=== PATIENT | male | born 1985 | race Caucasian/White ===

== ENCOUNTER 2016-10-04 18:11 | Emergency (ER) | payer OTHER ==
--- NOTE | 2016-10-04 20:06 | EDDOCDS ---
Nurse's Notes [facility] Name: Live [place] Age: 31 yrs Sex: Male : 1985 Arrival Date: 10/04/2016 Time: 18:11 Bed I10 / 23 Private MD: No Gill [facility] Diagnosis: Otitis externa;Otitis media, unspecified, right ear Presentation: 10/04 18:41 Presenting complaint: Patient states: right ear pain and decreased hearing since this ttb morning. No drainage noted. "crackling" in ear. Adult Sepsis Screening: The patient does not have new or worsening altered mentation. Patient's respiratory rate is less than 22. Systolic blood pressure is greater than 100. Patient has a qSOFA score of 0- Negative Sepsis Screen. Suicide/Homicide risk assessment- the patient denies having any suicidal and/or homicidal ideations and does not present with any other emotional, behavioral or mental health complaints. 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 Transition of care: patient was not received from another setting of care. 18:41 Acuity: MENA Level 5 ttb 18:41 Method Of Arrival: Walkin/Carried/Asstd ttb Triage Assessment: 18:43 General: Appears in no apparent distress, well nourished, well groomed, Behavior is ttb appropriate for age, cooperative, pleasant. Pain: Location: right ear Pain currently is 7 out of 10 on a pain scale. Pt Declines HIV testing. Neurological: Level of Consciousness is awake, alert. EENT: Reports nasal congestion nasal discharge pain in right ear. Cardiovascular: Chest pain is denied. Respiratory: No deficits noted. Airway is patent Respiratory effort is even, unlabored, Denies cough, shortness of breath. Derm: Skin is normal. 18:43 Injury Description: No known injury. ttb Historical: - Allergies: no known allergies; - Home Meds: 1. Tylenol Oral Unknown every 4 hours (Last dose: 10/04/2016 16:00) - PMHx: none; - PSHx: nerve grafting; tendon transfers; I&D; ulnar nerve transposition; Vasectomy; - Social history: Smoking status: Patient uses tobacco products, heavy tobacco smoker. Patient/guardian denies using alcohol, street drugs, No barriers to communication noted, The patient speaks fluent Northern Irish, Speaks appropriately for age. - Family history: Not pertinent. - : The pt / caregiver states he / she is not on anticoagulants. Home medication list is obtained from the patient. - Exposure Risk Screening:: None identified. Screenin:04 Screening information is obtained from the patient. Fall risk: No risks identified. ka4 Assistance ADL's: requires no assistance with activities of daily living. Abuse/DV Screen: The patient / caregiver reports he/she is: not in a situation that causes fear, pain or injury. Nutritional screening: No deficits noted. Advance Directives: There is no active DNR order. home support is adequate. Assessment: 20:03 General: Appears in no apparent distress, comfortable, well nourished, well groomed, ka4 Behavior is appropriate for age, cooperative, pleasant. Neurological: Level of Consciousness is awake, alert, obeys commands, Oriented to person, place, time, Systems Integration Engineer are equal bilaterally Moves all extremities. Gait is steady, Speech is normal, Facial symmetry appears normal, Facial symmetry: tongue is midline, Pupils are PERRLA. Respiratory: Airway is patent Respiratory effort is even, unlabored, Respiratory pattern is regular, symmetrical. Derm: Skin is intact, is healthy with good turgor, Skin is pink, warm & dry. Vital Signs: 18:12 BP 162 / 98; Pulse 100; Resp 18; Temp 98.8(O); Pulse Ox 97% on R/A; Weight 93.89 kg; dem1 Height 70 in. (177.80 cm); Pain 7/10; 18:12 Body Mass Index 29.70 (93.89 kg, 177.80 cm) [facility] Vitals: 18:12 Log In Time: October 04, 2016 at 18:10. [facility] ED Course: 18:12 Patient visited by Anamaria Mcfarlane. [facility] 18:12 [facility] 18:12 [place] is Private Physician. dem1 18:12 Patient moved to Waiting dem1 18:13 Patient moved to Pre RCE dem1 18:42 Triage Initiated ttb 19:35 [facility] ke 19:39 Patient moved to I10 / 23 [facility] 19:40 Patient visited by Chetan Ryan FNP. ke 19:40 Patient visited by Chetan Ryan FNP. ke 19:48 [facility] ke 20:04 The patient / caregiver is instructed regarding the plan of care and ED course. ka4 20:04 No IV's were initiated during this patient's visit. No procedures done that require ka4 assistance. 20:05 Patient name changed from Live\\S\\\\S\\[place]\\S\\ to Live\\S\\Davis\\S\\[place]. EDMS Order Results: There are currently no results for this order. Outcome: 19:49 Discharge ordered by Provider. ke 20:04 Discharge Assessment: patient administered narcotics - no. The following High Risk ka4 Discharge criteria are identified: None. Discharged to home ambulatory. Condition: good Condition: stable. No special radiology studies were completed. Property :Personal belongings accompany Pt. 20:05 Patient left the ED. ka4 Signatures: Dispatcher [employer] EDFL Chetan Ryan FNP FNP ke Strong, Shannon RN RN oswald1 Anamaria Mcfarlane Teresa, RN RN Tete Arellano LPN LPN ka4 MINGO
--- NOTE | 2016-10-04 20:06 | EDDOCDS ---
Physician Documentation [facility] Name: Live [place] Age: 31 yrs Sex: Male : 1985 Arrival Date: 10/04/2016 Time: 18:11 Bed I10 / 23 Private MD: No Gill [facility] Disposition: 10/04/16 19:49 Discharged to Home/Self Care. Impression: Otitis externa, Otitis media, unspecified, right ear. - Condition is Stable. - Discharge Instructions: Otitis Externa. - Prescriptions for Amoxicillin 500 mg Oral Capsule - take 1 capsule by ORAL route every 8 hours for 10 days; 30 tablet. Cipro HC 0.2- 1 % Otic Drops, Suspension - instill 3 drop by OTIC route every 12 hours for 7 days; 10 milliliter. Ibuprofen 600 mg Oral Tablet - take 1 tablet by ORAL route every 6 hours As needed take with food; 30 tablet. - Medication Reconciliation, Local Pharmacy Hours form. - Follow up: No Gill [facility]; When: 2 - 3 days; Reason: Recheck today's complaints, Continuance of care. - Problem is an ongoing problem. - Symptoms are unchanged. Historical: - Allergies: no known allergies; - Home Meds: 1. Tylenol Oral Unknown every 4 hours (Last dose: 10/04/2016 16:00) - PMHx: none; - PSHx: nerve grafting; tendon transfers; I&D; ulnar nerve transposition; Vasectomy; - Social history: Smoking status: Patient uses tobacco products, heavy tobacco smoker. Patient/guardian denies using alcohol, street drugs, No barriers to communication noted, The patient speaks fluent Italian, Speaks appropriately for age. - Family history: Not pertinent. - : The pt / caregiver states he / she is not on anticoagulants. Home medication list is obtained from the patient. - Exposure Risk Screening:: None identified. Vital Signs: 10/04 18:12 BP 162 / 98; Pulse 100; Resp 18; Temp 98.8(O); Pulse Ox 97% on R/A; Weight 93.89 kg / dem1 206.99 lbs; Height 70 in. (177.80 cm); Pain 7/10; 18:12 Body Mass Index 29.70 (93.89 kg, 177.80 cm) dem1 Signatures: Chetna Ryan, DIGITAL MARKETING INTERN DIGITAL MARKETING INTERN Lima Cheung, RN RN ttb Tang,Tete,BRICK SETTER BRICK SETTER ka4 MTDD
--- NOTE | 2016-10-06 21:05 | EDDOCDS ---
Nurse's Notes [facility] Name: Live [place] Age: 31 yrs Sex: Male : 1985 Arrival Date: 10/04/2016 Time: 18:11 Bed I10 / 23 Private MD: No Gill [facility] Diagnosis: Otitis externa;Otitis media, unspecified, right ear Presentation: 10/04 18:41 Presenting complaint: Patient states: right ear pain and decreased hearing since this ttb morning. No drainage noted. "crackling" in ear. Adult Sepsis Screening: The patient does not have new or worsening altered mentation. Patient's respiratory rate is less than 22. Systolic blood pressure is greater than 100. Patient has a qSOFA score of 0- Negative Sepsis Screen. Suicide/Homicide risk assessment- the patient denies having any suicidal and/or homicidal ideations and does not present with any other emotional, behavioral or mental health complaints. 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 Transition of care: patient was not received from another setting of care. 18:41 Acuity: MENA Level 5 ttb 18:41 Method Of Arrival: Walkin/Carried/Asstd ttb Triage Assessment: 18:43 General: Appears in no apparent distress, well nourished, well groomed, Behavior is ttb appropriate for age, cooperative, pleasant. Pain: Location: right ear Pain currently is 7 out of 10 on a pain scale. Pt Declines HIV testing. Neurological: Level of Consciousness is awake, alert. EENT: Reports nasal congestion nasal discharge pain in right ear. Cardiovascular: Chest pain is denied. Respiratory: No deficits noted. Airway is patent Respiratory effort is even, unlabored, Denies cough, shortness of breath. Derm: Skin is normal. 18:43 Injury Description: No known injury. ttb Historical: - Allergies: no known allergies; - Home Meds: 1. Tylenol Oral Unknown every 4 hours (Last dose: 10/04/2016 16:00) - PMHx: none; - PSHx: nerve grafting; tendon transfers; I&D; ulnar nerve transposition; Vasectomy; - Social history: Smoking status: Patient uses tobacco products, heavy tobacco smoker. Patient/guardian denies using alcohol, street drugs, No barriers to communication noted, The patient speaks fluent Finnish, Speaks appropriately for age. - Family history: Not pertinent. - : The pt / caregiver states he / she is not on anticoagulants. Home medication list is obtained from the patient. - Exposure Risk Screening:: None identified. Screenin:04 Screening information is obtained from the patient. Fall risk: No risks identified. ka4 Assistance ADL's: requires no assistance with activities of daily living. Abuse/DV Screen: The patient / caregiver reports he/she is: not in a situation that causes fear, pain or injury. Nutritional screening: No deficits noted. Advance Directives: There is no active DNR order. home support is adequate. Assessment: 20:03 General: Appears in no apparent distress, comfortable, well nourished, well groomed, ka4 Behavior is appropriate for age, cooperative, pleasant. Neurological: Level of Consciousness is awake, alert, obeys commands, Oriented to person, place, time, Business Rules Analyst are equal bilaterally Moves all extremities. Gait is steady, Speech is normal, Facial symmetry appears normal, Facial symmetry: tongue is midline, Pupils are PERRLA. Respiratory: Airway is patent Respiratory effort is even, unlabored, Respiratory pattern is regular, symmetrical. Derm: Skin is intact, is healthy with good turgor, Skin is pink, warm & dry. Vital Signs: 18:12 BP 162 / 98; Pulse 100; Resp 18; Temp 98.8(O); Pulse Ox 97% on R/A; Weight 93.89 kg; dem1 Height 70 in. (177.80 cm); Pain 7/10; 18:12 Body Mass Index 29.70 (93.89 kg, 177.80 cm) [facility] Vitals: 18:12 Log In Time: October 04, 2016 at 18:10. [facility] ED Course: 18:12 Patient visited by Anamaria Mcfarlane. [facility] 18:12 [facility] 18:12 [place] is Private Physician. dem1 18:12 Patient moved to Waiting dem1 18:13 Patient moved to Pre RCE dem1 18:42 Triage Initiated ttb 19:35 [facility] ke 19:39 Patient moved to I10 / 23 [facility] 19:40 Patient visited by Chetan Ryan FNP. ke 19:40 Patient visited by Chetan Ryan FNP. ke 19:48 [place], [facility] is Referral Physician. ke 20:04 The patient / caregiver is instructed regarding the plan of care and ED course. ka4 20:04 No IV's were initiated during this patient's visit. No procedures done that require ka4 assistance. 20:05 Patient name changed from Live\\S\\\\S\\[place]\\S\\ to Live\\S\\[place]\\S\\[place]. EDMS 20:10 [facility] Payment Agreement was scanned into [employer] and attached to record. erica 10/05 07:33 T-Sheet-- Draft Copy was scanned into [employer] and attached to record. gb Order Results: There are currently no results for this order. Outcome: 10/04 19:49 Discharge ordered by Provider. ke 20:04 Discharge Assessment: patient administered narcotics - no. The following High Risk ka4 Discharge criteria are identified: None. Discharged to home ambulatory. Condition: good Condition: stable. No special radiology studies were completed. Property :Personal belongings accompany Pt. 20:05 Patient left the ED. ka4 Signatures: Dispatcher [employer] EDID Sarah Centeno, Reg Reg Chetan Byers FNP FNP ke Strong, Shannon, RN RN Anamaria Mccabe Teresa, RN RN Tete Arellano LPN LPN ka4 Dori Shepherd [facility] Chart Complete MTDD
--- NOTE | 2016-10-06 21:05 | EDDOCDS ---
Physician Documentation [facility] Name: Live [place] Age: 31 yrs Sex: Male : 1985 Arrival Date: 10/04/2016 Time: 18:11 Bed I10 / 23 Private MD: No Gill [facility] Disposition: 10/04/16 19:49 Discharged to Home/Self Care. Impression: Otitis externa, Otitis media, unspecified, right ear. - Condition is Stable. - Discharge Instructions: Otitis Externa. - Prescriptions for Amoxicillin 500 mg Oral Capsule - take 1 capsule by ORAL route every 8 hours for 10 days; 30 tablet. Cipro HC 0.2- 1 % Otic Drops, Suspension - instill 3 drop by OTIC route every 12 hours for 7 days; 10 milliliter. Ibuprofen 600 mg Oral Tablet - take 1 tablet by ORAL route every 6 hours As needed take with food; 30 tablet. - Medication Reconciliation, Local Pharmacy Hours form. - Follow up: No Gill [facility]; When: 2 - 3 days; Reason: Recheck today's complaints, Continuance of care. - Problem is an ongoing problem. - Symptoms are unchanged. Historical: - Allergies: no known allergies; - Home Meds: 1. Tylenol Oral Unknown every 4 hours (Last dose: 10/04/2016 16:00) - PMHx: none; - PSHx: nerve grafting; tendon transfers; I&D; ulnar nerve transposition; Vasectomy; - Social history: Smoking status: Patient uses tobacco products, heavy tobacco smoker. Patient/guardian denies using alcohol, street drugs, No barriers to communication noted, The patient speaks fluent Czech, Speaks appropriately for age. - Family history: Not pertinent. - : The pt / caregiver states he / she is not on anticoagulants. Home medication list is obtained from the patient. - Exposure Risk Screening:: None identified. Vital Signs: 10/04 18:12 BP 162 / 98; Pulse 100; Resp 18; Temp 98.8(O); Pulse Ox 97% on R/A; Weight 93.89 kg / dem1 206.99 lbs; Height 70 in. (177.80 cm); Pain 7/10; 18:12 Body Mass Index 29.70 (93.89 kg, 177.80 cm) dem1 MDM: 20:10 [facility] Payment Agreement was scanned into [employer]ide[employer] and attached to record. [facility] 20:10 Financial registration complete. gjb 10/05 07:33 T-Sheet-- Draft Copy was scanned into [employer] and attached to record. gb Signatures: Sarah Centeno, Reg Reg gb Chetan Ryan, CASH REGISTER SERVICER CASH REGISTER SERVICER Lima Cheung, RN RN ttb Tete Beckwith,JET DYEING MACHINE TENDER JET DYEING MACHINE TENDER Dori Alegria The chart was reviewed and I authenticate all verbal orders and agree with the evaluation and treatment provided.Attachments: 10/04 20:10 [facility] Payment Agreement b 10/05 07:33 T-Sheet-- Draft Copy gb Chart Complete MTDD
--- NOTE | 2016-10-06 21:05 | EDDOCDS ---
Physician Documentation [facility] Name: Live [place] Age: 31 yrs Sex: Male : 1985 Arrival Date: 10/04/2016 Time: 18:11 Bed I10 / 23 Private MD: No Gill [facility] Disposition: 10/04/16 19:49 Discharged to Home/Self Care. Impression: Otitis externa, Otitis media, unspecified, right ear. - Condition is Stable. - Discharge Instructions: Otitis Externa. - Prescriptions for Amoxicillin 500 mg Oral Capsule - take 1 capsule by ORAL route every 8 hours for 10 days; 30 tablet. Cipro HC 0.2- 1 % Otic Drops, Suspension - instill 3 drop by OTIC route every 12 hours for 7 days; 10 milliliter. Ibuprofen 600 mg Oral Tablet - take 1 tablet by ORAL route every 6 hours As needed take with food; 30 tablet. - Medication Reconciliation, Local Pharmacy Hours form. - Follow up: No Gill [facility]; When: 2 - 3 days; Reason: Recheck today's complaints, Continuance of care. - Problem is an ongoing problem. - Symptoms are unchanged. Historical: - Allergies: no known allergies; - Home Meds: 1. Tylenol Oral Unknown every 4 hours (Last dose: 10/04/2016 16:00) - PMHx: none; - PSHx: nerve grafting; tendon transfers; I&D; ulnar nerve transposition; Vasectomy; - Social history: Smoking status: Patient uses tobacco products, heavy tobacco smoker. Patient/guardian denies using alcohol, street drugs, No barriers to communication noted, The patient speaks fluent Albanian, Speaks appropriately for age. - Family history: Not pertinent. - : The pt / caregiver states he / she is not on anticoagulants. Home medication list is obtained from the patient. - Exposure Risk Screening:: None identified. Vital Signs: 10/04 18:12 BP 162 / 98; Pulse 100; Resp 18; Temp 98.8(O); Pulse Ox 97% on R/A; Weight 93.89 kg / dem1 206.99 lbs; Height 70 in. (177.80 cm); Pain 7/10; 18:12 Body Mass Index 29.70 (93.89 kg, 177.80 cm) dem1 MDM: 20:10 [facility] Payment Agreement was scanned into [employer] and attached to record. [facility] 20:10 Financial registration complete. gjb 10/05 07:33 T-Sheet-- Draft Copy was scanned into [employer] and attached to record. gb Signatures: Sarah Centeno, Reg Reg gb Chetan Ryan, SLICING MACHINE FEEDER SLICING MACHINE FEEDER Lima Cheung, RN RN ttb Tete Beckwith,HOUSING COURT JUDGE HOUSING COURT JUDGE Dori Alegria The chart was reviewed and I authenticate all verbal orders and agree with the evaluation and treatment provided.Attachments: 10/04 20:10 [facility] Payment Agreement b 10/05 07:33 T-Sheet-- Draft Copy gb Chart Complete MTDD
== END 2016-10-04 20:05 | disposition home or self-care (01) ==
LOC: M ED 18:11
DX: H60.91 Unspecified otitis externa, right ear (principal); H66.91 Otitis media, unspecified, right ear; Z72.0 Tobacco use

== ENCOUNTER 2017-05-03 23:39 | Emergency (ER) | payer OTHER ==
[~2017-05-03] VITALS: Ht 177.8 cm; Wt 95.5 kg
[2017-05-04] MEDS ORDERED: NAPR500T PO (03:45)
[2017-05-04] MEDS ORDERED: NAPROXEN 250 MG TAB PO ONE (03:45)
[2017-05-04 03:52] VITALS: BP 124/84
--- NOTE | 2017-05-04 09:43 | REP ---
PA CHEST WITH RIGHT RIBS: 05/04/2017. Clinical history: Trauma. Findings: No prior studies. PA chest: Lungs well inflated and without infiltrate, effusion, atelectasis or mass. The heart, mediastinal and hilar contours are normal. Airway intact. There are postoperative changes along the bony glenoid and scapula inferior to it with plate and screw fixation evident. No definite acute fracture identified on the PA chest. No free air. No effusion or pneumothorax. Right ribs: Posterior rib articulations, visualized thoracic vertebral levels, clavicle, scapula and right humerus were without fracture or focal lesion. No lateral pleural thickening, effusion or pneumothorax. Impression: 1. Negative PA chest and right rib series for any acute finding. Signed by Kraig Chaney MD 05/04/2017 07:52 P
== END 2017-05-04 03:56 | disposition home or self-care (01) ==
LOC: M ED 23:39
DX: R07.89 Other chest pain (principal)

== ENCOUNTER 2018-06-22 09:53 | Emergency (ER) | payer OTHER ==
[2018-06-22] MEDS ORDERED: KETOROLAC 60 MG/2 ML VIAL (J1885) IM (10:15)
[2018-06-22] MEDS: PERCOCET 5MG/325MG TAB PO (10:25)
[2018-06-22] MEDS: KETOROLAC 30 MG/ML VIAL (J1885) IV (10:28)
== END 2018-06-22 12:34 | disposition home or self-care (01) ==
LOC: M ED 09:53
DX: S86.902A Unspecified injury of unspecified muscle(s) and tendon(s) at lower leg level, left leg, initial encounter (principal); X58.XXXA Exposure to other specified factors, initial encounter; Y92.89 Other specified places as the place of occurrence of the external cause; M79.89 Other specified soft tissue disorders; Z86.718 Personal history of other venous thrombosis and embolism
CPT/HCPCS: J1885

== ENCOUNTER → 2019-11-21 | Outpatient (REF) | payer OTHER ==
[~2019-11-21] MED LIST: HYDR-3715 PO; NAPR-837 PO
== END ==
LOC: M LAB 10:52
PROVIDERS: ATTEND Physician Assistant Medical
DX: J11.1 Influenza due to unidentified influenza virus with other respiratory manifestations (principal)

== ENCOUNTER 2019-11-30 11:43 | Emergency (ER) | payer OTHER ==
[~2019-11-30] VITALS: Ht 177.8 cm; Wt 98.3 kg
--- NOTE | 2019-11-30 12:32 | REP ---
UNILATERAL LEFT RIB SERIES: Five views including chest radiographs from May 04, 2017. FINDINGS: There are two separate screw plate devices affixing previous scapular fracture on the left. This is unchanged. PA chest radiograph shows no evidence of pneumothorax or hydrothorax. Mediastinum is not widened. Lung martinez are clear. Heart is not enlarged. Multiple views of the left rib cage show no evidence of rib fracture or bony destructive lesion. IMPRESSION: Negative left rib radiographs. Previous lateral border scapular fixation device placement. Electronically Signed by Jimmy Xiong MD 11/30/2019 01:07 P
[2019-11-30] MEDS ORDERED: NORCO, ANEXSIA 5/325MG TABLET (HYDROcodone/ACETAMINOPHEN) PO ONE (13:00)
[2019-11-30] MEDS ORDERED: IBUPROFEN 600 MG TAB PO ONE (13:00)
[2019-11-30] MEDS ORDERED: NORC1TAB7 PO (13:05)
[2019-11-30 13:14] VITALS: BP 125/69
== END 2019-11-30 13:15 | disposition home or self-care (01) ==
LOC: M ED 11:43
DX: S29.011A Strain of muscle and tendon of front wall of thorax, initial encounter (principal); X58.XXXA Exposure to other specified factors, initial encounter; Y92.89 Other specified places as the place of occurrence of the external cause; F17.210 Nicotine dependence, cigarettes, uncomplicated

== ENCOUNTER 2023-03-01 23:28 | Emergency (ER) | payer OTHER ==
[~2023-03-01] VITALS: Ht 177.8 cm; Wt 104.2 kg
[~2023-03-01 23:28] MED LIST changes: +NORC1TAB7 PO
[2023-03-01 23:29] VITALS: BP 140/88
[2023-03-02 00:26] LABS: ALBUMIN 3.9 G/DL (3.2-5.2); ALKALINE PHOSPHATASE 72 U/L (46-116); ALT/SGPT 31 U/L (7.0-40); AST/SGOT 23 U/L (<34); BASO # 0.1 10^3/uL (0.0-0.2); BASO % 0.8 % (0.0-1.0); BILIRUBIN,TOTAL 0.3 MG/DL (0.3-1.2); BLOOD UREA NITROGEN 14 MG/DL (9-23); CALCIUM LEVEL 8.9 MG/DL (8.5-10.1); CARBON DIOXIDE LEVEL 25 MMOL/L (20-31); CHLORIDE LEVEL 110 MMOL/L (98-107); EOS # 0.3 10^3/uL (0.0-0.5); EOS % 2.9 % (0.0-3.0); GLOMERULAR FILTRATION RATE > 60.0 (>60); GLUCOSE, FASTING 117 MG/DL (60-100); HEMATOCRIT 44.7 % (42.0-52.0); HEMOGLOBIN 15.1 g/dl (13.5-17.5); LYMPH # 3.6 10^3/uL (1.5-5.0); LYMPH % 38.9 % (24.0-44.0); MEAN CORPUSCULAR HEMOGLOBIN 29.4 pg (27.0-33.0); MEAN CORPUSCULAR HGB CONC 33.8 g/dl (32.0-36.5); MONO % 10.5 % (2.0-8.0); NEUTROPHILS # 4.3 10^3/uL (1.5-8.5); PLATELET COUNT, AUTOMATED 285 10^3/uL (150-450); RED BLOOD COUNT 5.14 10^6/uL (4.30-6.10); SODIUM LEVEL 141 MMOL/L (136-145); TOTAL PROTEIN 6.7 G/DL (5.7-8.2); WHITE BLOOD COUNT 9.3 10^3/uL (4.0-10.0)
[2023-03-02 00:59] LABS: APPEARANCE, URINE CLEAR (CLEAR); BACTERIA, URINE AUTO NEGATIVE (NEGATIVE); BILIRUBIN, URINE AUTO NEGATIVE (NEGATIVE); BLOOD, URINE BLOOD NEGATIVE (NEGATIVE); COLOR, URINE YELLOW (YELLOW); GLUCOSE, URINE (UA) AUTO NEGATIVE (NEGATIVE); KETONE, URINE AUTO TRACE mg/dL (NEGATIVE); LEUKOCYTE ESTERASE, URINE AUTO NEGATIVE (NEGATIVE); MUCUS, URINE SMALL (NEGATIVE); NITRITE, URINE AUTO NEGATIVE (NEGATIVE); PROTEIN, URINE AUTO NEGATIVE (NEGATIVE); RBC, URINE AUTO 0 /HPF (0-3); SPECIFIC GRAVITY URINE AUTO 1.029 (1.002-1.035); SQUAMOUS EPITHELIAL CELL UR AU 0 /HPF (0-6); WBC, URINE AUTO 0 /HPF (0-3)
== END 2023-03-02 04:13 | disposition left against medical advice (07) ==
LOC: M ED 23:28
DX: R10.30 Lower abdominal pain, unspecified (principal); Z53.21 Procedure and treatment not carried out due to patient leaving prior to being seen by health care provider

== ENCOUNTER → 2024-05-29 | Outpatient (CLI) | payer OTHER ==
[~2024-05-29] MED LIST changes: +ISOVUE-370 76% 100ML VIAL As Ordered ONE
== END ==
LOC: M RAD 07:48
PROVIDERS: ATTEND Nurse Practitioner Adult Health
DX: M79.622 Pain in left upper arm (principal)
CPT/HCPCS: 73201; Q9967

== ENCOUNTER → 2025-07-06 | Outpatient (CLI) | payer OTHER ==
[~2025-07-06] MED LIST changes: -ISOVUE-370 76% 100ML VIAL As Ordered ONE
== END ==
LOC: M SOG 07:31
PROVIDERS: ATTEND Physician Assistant
DX: M79.644 Pain in right finger(s) (principal)

== ENCOUNTER → 2025-08-25 | Outpatient (CLI) | payer OTHER ==
[~2025-08-25] MED LIST changes: +PROHANCE 279.3MG/ML 15ML VIAL As Ordered ONE; +PROHANCE 279.3MG/ML 5ML VIAL As Ordered ONE
== END ==
LOC: M RAD 06:39
PROVIDERS: ATTEND Physician Assistant
DX: R22.31 Localized swelling, mass and lump, right upper limb (principal)
CPT/HCPCS: 73220; A9579

== ENCOUNTER 2025-09-24 10:43 | Emergency (ER) | payer OTHER ==
[~2025-09-24] VITALS: Ht 177.8 cm; Wt 106.5 kg
[~2025-09-24 10:43] MED LIST changes: -PROHANCE 279.3MG/ML 15ML VIAL As Ordered ONE; -PROHANCE 279.3MG/ML 5ML VIAL As Ordered ONE
[2025-09-24] MEDS ORDERED: LOSA50TA28 PO (10:53)
[2025-09-24] MEDS ORDERED: HOME MED LIST COMPLETE! XX SCH (11:05)
[2025-09-24 11:24] LABS: BASO # 0.1 10^3/uL (0.0-0.2); BASO % 0.8 % (0.0-1.0); EOS # 0.2 10^3/uL (0.0-0.5); EOS % 1.9 % (0.0-3.0); LYMPH # 2.8 10^3/uL (1.5-5.0); LYMPH % 35.3 % (24.0-44.0); MONO # 0.8 10^3/uL (0.0-0.8); MONO % 9.9 % (2.0-8.0); NEUTROPHILS # 4.0 10^3/uL (1.5-8.5); NEUTROPHILS % 51.5 % (36.0-66.0); PLATELET COUNT, AUTOMATED 271 10^3/uL (150-450)
[2025-09-24 11:52] LABS: CK-MB VALUE MASS 2.5 NG/ML (<3.6)
[2025-09-24 11:53] LABS: CALCIUM LEVEL 8.5 MG/DL (8.5-10.1); CARBON DIOXIDE LEVEL 23 MMOL/L (20-31); CHLORIDE LEVEL 110 MMOL/L (98-107); CREATININE FOR GFR 1.10 MG/DL (0.70-1.30); GLOMERULAR FILTRATION RATE 86.0 (>60); POTASSIUM SERUM 4.3 MMOL/L (3.5-5.1); SODIUM LEVEL 140 MMOL/L (136-145)
[2025-09-24 12:16] LABS: CPK CREATINE PHOSPHOKINASE 157 U/L (46-171); MB/CK RELATIVE INDEX 1.59 (< OR =4)
[2025-09-24] MEDS ORDERED: ISOVUE-370 76% 100 ML VIAL As Ordered ONE (13:54)
[2025-09-24] MEDS ORDERED: GI COCKTAIL 50 ML BTL(HYOSCYAMINE/MAALOX/LIDOCAINE VISCOUS)(1:3:1) PO ONE (13:55)
[2025-09-24] MEDS: LIDOCAINE VISCOUS 2% SOLN 15 ML UDC PO ONE (14:34)
[2025-09-24] MEDS: NS (Normal Saline) 0.9% 1,000 ML IV ONE (14:34)
[2025-09-24] MEDS: MAALOX 30 ML SUSP *UDC PO ONE (14:34)
[2025-09-24] MEDS: HYOSCYAMINE SULFATE 0.125 MG SUBL TABLET SL ONE (14:36)
[2025-09-24 15:18] LABS: ALT/SGPT 27.0 U/L (7.0-40); AST/SGOT 22.0 U/L (<34); CK-MB VALUE MASS 1.9 NG/ML (<3.6)
[2025-09-24 15:22] LABS: CPK CREATINE PHOSPHOKINASE 145.0 U/L (46-171); MB/CK RELATIVE INDEX 1.31 (< OR =4)
[2025-09-24] MEDS: ASPIRIN 81 MG CHEWABLE TABLET PO ONE (16:07)
[2025-09-24] MEDS: KETOROLAC 30 MG/ML 1 ML VIAL IV ONE (17:10)
[2025-09-24] MEDS ORDERED: OMEP40CA4 PO ×2 (17:14→18:17)
[2025-09-24 17:42] LABS: C REACTIVE PROTEIN QUANTITATIV < 0.50 MG/DL (<1.0)
[2025-09-24 18:00] VITALS: BP 143/89; O2SAT 98
[2025-09-24 18:09] VITALS: TEMP 97.8
== END 2025-09-24 18:17 | disposition home or self-care (01) ==
LOC: M ED 11:14
DX: R07.9 Chest pain, unspecified (principal); I10 Essential (primary) hypertension; K21.9 Gastro-esophageal reflux disease without esophagitis; J45.909 Unspecified asthma, uncomplicated; F17.200 Nicotine dependence, unspecified, uncomplicated; F12.10 Cannabis abuse, uncomplicated
CPT/HCPCS: 71275; 74177; 76705; 80048; 80076; 82550; 82553; 83690; 84484; 85025; 85379; 85652; 86140; 87486; 87581; 87633; 87798; 93005; 93041; 93970; 96360; 99285; Q9967